=== PATIENT | female | born 1995 | race Caucasian/White ===

== ENCOUNTER → 2024-10-20 | Outpatient (CLI) | payer MEDICAID, SELFPAY ==
--- NOTE | 2024-10-20 09:30 | XR_ITS ---
Examination: Complete OB ultrasound greater than 14 weeks Date and time of exam: October 20, 2024 1113 hours INDICATIONS: Unknown size and dates. Findings: Viable intrauterine single fetus with single amniotic sac presentation cephalic Cardiac motion 153 BPM Placenta anterior grade 1 Umbilical cord insertion seen Amniotic fluid normal spine maternal right Cervix 3.5 cm. Composite estimated gestational age based on BPD, head circumference, abdominal circumference, femur length is 21 weeks 3 days Estimated weight 422 g. Survey of intracranial anatomy, spinal anatomy, abdominal anatomy, four-chamber heart performed with no abnormalities identified. IMPRESSION: Recommend this patient return for repeat sonography with the radiologist in attendance to assess cardiac echogenic foci.
== END | disposition home or self-care (01) ==
LOC: CDIM 09:30
PROVIDERS: PCP Obstetrics & Gynecology; Referring Provider Obstetrics & Gynecology; Visit Provider Obstetrics & Gynecology
DX: O20.0 Threatened abortion (principal); Z3A.21 21 weeks gestation of pregnancy
CPT/HCPCS: 76805

== ENCOUNTER 2025-02-20 02:10 | Inpatient (IN) | payer MEDICAID, SELFPAY ==
[2025-02-20] VITALS (24 sets, daily range): BP systolic 92–127; BP diastolic 52–80; PULSE 64–105; RESP 13–19; TEMP 36.4–37.2; O2SAT 95–100
[2025-02-20] MEDS: OXYTOCIN in NS 20 units 20 UNIT/1,000 ML BAG 125 UNIT IV (02:33)
[2025-02-20] MEDS: METHYLERGONOVINE INJ 0.2 MG/ML VIAL IM (02:40)
[2025-02-20] MEDS: fentaNYL CIT INJ 50 mCg/ML AMP 2ML 100 MCG IVP (02:40)
[2025-02-20] MEDS: TRANEXAMIC ACID 1,000 MG IVPB 1,000 MG/100 ML BAG 200 MG IV (02:41)
[2025-02-20] MEDS: ceFAZolin/D5W 2 GM IV 2 GM/100 ML BAG IV (02:53)
[2025-02-20] MEDS: FAMOTIDINE INJ 10 MG/ML VIAL 2 ML 20 MG IV (02:56)
--- NOTE | 2025-02-20 03:26 | PD.LDHP ---
Documentation for date of: 02/20/25 OB Labor/Induct. HPI History of Present Illness Chief complaint: Precipitous delivery : 2 Para: 1 Term pregnancies: 1 pregnancies: 0 Living children: 0 History of Abortions: Spontaneous and Elective: 0 History of Vaginal deliveries: 1 History of sections: No History of : No TEDDY: 02/24/25 History of present illness: Patient is a 29-year-old 2 para 1 at 39 weeks and 3 days with estimated due date of 02/24/2025 who was brought in by EMS due to precipitous labor at home with full dilatation of cervix. Patient proceeded to deliver shortly after arrival. Patient received care at [facility], we do not have any records on her. Verbally she reported a due date of 02/24/2025. Past Medical History Surgical History SURGICAL: Negative Section Meds Home Medications and Allergies Allergies Allergy/AdvReac Type Severity Reaction Status Date / Time No Known Allergies Allergy Verified 12/26/21 20:00 OB Exam Physical Exam Vital signs: Pulse BP 86 122/62 02/20/25 02:48 02/20/25 02:48 Constitutional Constitutional: no acute distress Routine HEENT Exam Head: Present normocephalic and atraumatic Eye: Present EOMI and PERRL ENT: Present mucous membranes moist Routine Neck Exam Neck: Present supple and trachea midline Routine Cardiovascular Exam Cardiovascular: Present RRR Routine Abdominal Exam Abdominal: Present soft and normoactive bowel sounds Detailed Labor and Delivery Exam Dilation (cm): 10 Effacement (%): 100 Cervix position: mid station: +4 Consistency: soft Routine Extremities Exam Extremities: Present full ROM Routine Skin Exam Skin: Present intact, dry and warm Routine Neurological Exam Neurological: Present alert, oriented X3 and CN II-XII intact Routine Psychiatric Exam Psychiatric: Present normal affect and normal thought process OB Assessment & Plan Assessment and Plan (1) Labor, precipitous: Status: Acute Assessment and plan: Patient is status post precipitous delivery hemorrhage with cervical laceration noted in the delivery room, patient would not tolerate exam or repair. Informed consent was obtained and she was taken to the operating room for repair under anesthesia. Please refer to separately dictated operative report for the operative portion.
--- NOTE | 2025-02-20 03:29 | ESOP_ITS ---
Operative Note - RUG REPAIRER Procedure Date of procedure: 02/20/25 Procedure Performed: Exam under anesthesia, repair of cervical laceration Placement of Bakri uterine tamponade balloon Indication: hemorrhage with inability to perform exam in the delivery room due to belligerent patient Anesthesia type: General Procedure description: Informed consent was obtained and the patient was taken to the operating room. Identity was confirmed by double identifiers and she was placed on the operating table. General anesthesia was administered and the patient was positioned in the dorsal lithotomy position on [facility]. The perineum was prepped in the usual sterile fashion. Patient already had a Philippe catheter in situ that was placed in the delivery room. A detailed exam was performed and she was noted to have laceration at 7:00 and 5:00 portions of the cervix. She was also noted to have brisk uterine hemorrhage. Right angle retractor was used to retract the vaginal wall and the laceration edges were grasped using ring forceps. They were separately repaired using [id number] stitches taking care to include the apex of the laceration. After the repair was complete hemostasis was noted to be satisfactory. At this time she continued to have brisk hemorrhage from inside the uterine cavity. A Bakri uterine tamponade balloon was placed and secured. It was inflated with 400 cc of sterile saline solution. Hemostasis was now noted to be satisfactory. All instruments were now withdrawn. The perineum was thoroughly cleaned. Patient was taken out of [facility], general anesthesia was reversed and she was taken to the recovery room in a stable and awake condition. All instruments, lap and sponge counts were correct times Specimen: none Estimated blood loss (ml): 200 Findings: Total blood loss 800 cc, 600 in the delivery room and 200 in the OR Diagnosis Problem List Completed Was Problem List Reviewed/Reconciled?: Yes
[2025-02-20 03:31] LABS: Basophils # (Auto) 0.0 Thou/mm3 (0.0-0.2); Basophils % (Auto) 0 % (0-2.5); Eosinophils # (Auto) 0.0 Thou/mm3 (0.0-0.5); Eosinophils % (Auto) 0 % (0-10); Immature Granulocytes Auto 0.04 Thou/mm3 (0.00-0.00); Lymphocytes # (Auto) 0.7 Thou/mm3 (1.0-4.8); Mean Corpuscular Volume 71 fL (80-100); Monocytes # (Auto) 0.4 Thou/mm3 (0.0-0.8); Monocytes % (Auto) 5 % (0-12); Nucleated Red Blood Cell # 0.00 Thou/mm3 (0.00-0.00); Nucleated Red Blood Cell % 0 /100 WBC (0); White Blood Count 8.0 Thou/mm3 (3.6-11.0)
--- NOTE | 2025-02-20 03:32 | PD.LDDELS ---
Data (Espinosa) Data Hx Section: No : 2 Term: 1 : 0 Livin Abortions: Spontaneous & Theraputic: 0 Delivery Data (Espinosa) Delivery Data Delivered by: Sandy Martinez Anesthesia Type Anesthesia type: General
[2025-02-20 03:33] LABS: Hematocrit 21.9 % (36.0-46.0); Lymphocytes % (Auto) 8 % (10-50); Mean Corpuscular HGB Conc 32.4 g/dl (31.0-37.0); Mean Corpuscular Hemoglobin 23.1 pg (25.0-35.0); Neutrophils # (Auto) 6.8 Thou/mm3 (1.8-7.7); Neutrophils % (Auto) 86 % (37-80); Platelet Count 178 Thou/mm3 (140-440); RDW Standard Deviation 39.9 fL (36.4-46.3); Red Blood Count 3.08 Miln/mm3 (4.00-5.20)
[2025-02-20 03:57] LABS: HIV (1&2) Antibody Rapid Non-Reactive
[2025-02-20 04:22] LABS: Rubella, IgG Antibody Reactive (Immune)
[2025-02-20 04:32] LABS: Syphilis Nonreactive (Nonreactive)
[2025-02-20 04:38] LABS: Amphetamine/Metham Scrn,Ur OB Negative (Negative); Benzoylecgonine Screen, Ur OB Negative (Negative); Opiate Screen,Urine OB Negative (Negative); THC Screen,Urine OB Positive (Negative)
[2025-02-20 04:39] LABS: THC U Confirm* See Sep Rpt
[2025-02-20 05:27] LABS: Hemoglobin 7.1 g/dL (12.0-16.0)
[2025-02-20 06:07] LABS: Basophils # (Auto) 0.0 Thou/mm3 (0.0-0.2); Basophils % (Auto) 0 % (0-2.5); Eosinophils # (Auto) 0.0 Thou/mm3 (0.0-0.5); Eosinophils % (Auto) 0 % (0-10); Hematocrit 25.8 % (36.0-46.0); Immature Granulocytes Auto 0.06 Thou/mm3 (0.00-0.00); Lymphocytes # (Auto) 0.7 Thou/mm3 (1.0-4.8); Lymphocytes % (Auto) 5 % (10-50); Mean Corpuscular HGB Conc 31.8 g/dl (31.0-37.0); Mean Corpuscular Hemoglobin 22.7 pg (25.0-35.0); Mean Corpuscular Volume 72 fL (80-100); Monocytes # (Auto) 0.6 Thou/mm3 (0.0-0.8); Monocytes % (Auto) 4 % (0-12); Neutrophils # (Auto) 13.8 Thou/mm3 (1.8-7.7); Neutrophils % (Auto) 91 % (37-80); Nucleated Red Blood Cell # 0.00 Thou/mm3 (0.00-0.00); Nucleated Red Blood Cell % 0 /100 WBC (0); Platelet Count 202 Thou/mm3 (140-440); RDW Standard Deviation 40.4 fL (36.4-46.3); Red Blood Count 3.61 Miln/mm3 (4.00-5.20); White Blood Count 15.1 Thou/mm3 (3.6-11.0)
[2025-02-20 06:13] LABS: Hemoglobin 8.2 g/dL (12.0-16.0)
--- NOTE | 2025-02-20 10:00 | PC.SS ---
DIRECTOR OF INFECTION PREVENTION conducted bedside contact with the patient to address nursing referral indicating patient was positive for THC upon admission.? DIRECTOR OF INFECTION PREVENTION discussed basis of referral.? Patient confirmed use of THC to address level of anxiety.? Per patient, last use of THC was approximately 4 months.? Patient reports edible form.? Patient?s toxicology report was also positive for THC.? Patient denies possessing a history of drug abuse.? DIRECTOR OF INFECTION PREVENTION informed the patient that a report to CWS would be generated due to patient and positive toxicology reports.? Patient acknowledged submittal of report.? Patient reports not participating with counseling to address anxiety.? Patient reports that level of anxiety is not impairing daily functioning.? Infant is the patient?s second child.? Patient is aligned with WIC, SNAP and TANF.? Patient denies possessing history of domestic violence or CWS intervention.? Tarun KENNY; will not be involved in the rearing of the infant.? OB services provided by Dr. Yuen.? Patient describes consistency with appointments.? Patient has access to appropriate supplies and equipment; to include a car seat.? Patient?s mother will provide transportation upon discharge.? Patient describes possessing support system consisting of mother and extended family.? DIRECTOR OF INFECTION PREVENTION provided the patient with community resources to include Parenting Network and Warm Line.? No further intervention required at this time, social contact worker will be available to address any further concerns.? DIRECTOR OF INFECTION PREVENTION updated bedside nurse.? Bedside nurse to submit high risk referral.? DIRECTOR OF INFECTION PREVENTION to generate CWS report.?
--- NOTE | 2025-02-20 11:39 | PC.SS ---
CWS verbal report submitted to CWS staff, Macarena Saleh. Written report submitted electronically to screening unit. Written report placed in patient's chart. SENIOR SOFTWARE DEVELOPMENT ENGINEER informed by CWS that if referral is deemed immediate, CWS staff will respond within 2 hours; if not CWS will follow up within 10 days. SENIOR SOFTWARE DEVELOPMENT ENGINEER updated bedside nurse.
[2025-02-20 13:56] LABS: Basophils # (Auto) 0.0 Thou/mm3 (0.0-0.2); Basophils % (Auto) 0 % (0-2.5); Eosinophils # (Auto) 0.0 Thou/mm3 (0.0-0.5); Eosinophils % (Auto) 0 % (0-10); Hematocrit 29.1 % (36.0-46.0); Hemoglobin 9.7 g/dL (12.0-16.0); Immature Granulocytes Auto 0.03 Thou/mm3 (0.00-0.00); Lymphocytes # (Auto) 1.3 Thou/mm3 (1.0-4.8); Lymphocytes % (Auto) 12 % (10-50); Mean Corpuscular HGB Conc 33.3 g/dl (31.0-37.0); Mean Corpuscular Hemoglobin 25.0 pg (25.0-35.0); Mean Corpuscular Volume 75 fL (80-100); Monocytes # (Auto) 0.8 Thou/mm3 (0.0-0.8); Monocytes % (Auto) 7 % (0-12); Neutrophils # (Auto) 9.2 Thou/mm3 (1.8-7.7); Neutrophils % (Auto) 81 % (37-80); Nucleated Red Blood Cell # 0.02 Thou/mm3 (0.00-0.00); Nucleated Red Blood Cell % 0 /100 WBC (0); Platelet Count 180 Thou/mm3 (140-440); RDW Standard Deviation 50.0 fL (36.4-46.3); Red Blood Count 3.88 Miln/mm3 (4.00-5.20); White Blood Count 11.4 Thou/mm3 (3.6-11.0)
[2025-02-20] MEDS: HYDROcodone/APAP 5/325 TABLET 1 TAB PO (20:06)
--- NOTE | 2025-02-20 20:23 | PD.LDPPPRG ---
Subjective Subjective Interval history: still has the bakhri and the thakur / s/p precipitate labor and delivery and extensive cervical lacerations , needing repair in OR and also a Bakhri was placed about 3 am this morning . Patient also received 2 units PRBC Hb is 9.7 now Exam Vital Signs Temp Pulse Resp BP Pulse Ox O2 Del Method O2 Flow Rate 98.6 F 75 16 97/63 98 Room Air 8 02/20/25 15:21 02/20/25 15:21 02/20/25 15:21 02/20/25 15:21 02/20/25 15:21 02/20/25 15:21 02/20/25 04:00 Narrative Exam Patient had a normal vaginal delivery. precipitous with cervical lacerations and repair and placement of bakhri balloon She is doing well, VSS alert and oriented/normal insight and judgment/denies depression or anxiety No chest pain No shortness of breath No fever Back pain manageable/denies Moving all extremities No calf pain Ambulating pain managed by Tylenol and Motrin, normal Lochia average Bakhri removed after removing 400 cc of instilled fluid Thakur still in and will be removed Other medical issues none Other concerns will start oral cytotec for uterotonicity Planning to breast-feed/bottle Feed//both Counseled on breast-feeding Counseled on care and follow-up Objective Labs 02/20/25 13:48 Labs: Laboratory Results - last 24 hr 02/20/25 02/20/25 02/20/25 03:20 05:43 13:48 WBC 8.0 15.1 H D 11.4 H RBC 3.08 L 3.61 L 3.88 L Hgb 7.1 L 8.2 L 9.7 L Hct 21.9 L* 25.8 L 29.1 L MCV 71 L 72 L 75 L MCH 23.1 L 22.7 L 25.0 MCHC 32.4 31.8 33.3 RDW Std Deviation 39.9 40.4 50.0 H Plt Count 178 202 180 Neut % (Auto) 86 H 91 H 81 H Lymph % (Auto) 8 L 5 L 12 [place] % (Auto) 5 4 7 Eos % (Auto) 0 0 0 Baso % (Auto) 0 0 0 Neut # (Auto) 6.8 13.8 H 9.2 H Lymph # (Auto) 0.7 L 0.7 L 1.3 [place] # (Auto) 0.4 0.6 0.8 Eos # (Auto) 0.0 0.0 0.0 Baso # (Auto) 0.0 0.0 0.0 Immature Gran # (Auto) 0.04 H 0.06 H 0.03 H Absolute Nucleated RBC 0.00 0.00 0.02 H Immature Gran % 1 H 0 0 Nucleated RBC % 0 0 0 Urine Opiates Screen Negative U Amphetamin/Meth Scrn Negative U Cocaine Metab Screen Negative U Marijuana (THC) Screen Positive A Syphilis Serology Nonreactive HIV 1&2 Antibody Rapid Non-Reactive Rubella IgG Antibody Reactive (Immune) Blood Type O Positive Antibody Screen NEGATIVE Crossmatch See Detail Blood Bank Wristband ID Yes Assessment & Plan Problem List (1) Labor, precipitous: Status: Acute Assessment and plan: delivered PPD #0 (2) Cervical tear resulting from childbirth: Problem details: repaired in OR approx 0200 am on 02/20/2025 Status: Acute (3) PPH ( hemorrhage): Problem details: bakhri placed , removed now and will start oral cytotec Status: Acute Time Spent With Patient Time: Total time spent is greater than 50% in coordination of care (as documented) at patient's floor/unit and/or counseling patient: Time with patient: 25 - 35 minutes
[2025-02-20 20:36] LABS: Hepatitis B Surface Antigen Non Reactive (Non React)
[2025-02-21 00:13] VITALS: BP 109/68; PULSE 60; RESP 18; TEMP 37.1; O2SAT 97
[2025-02-21 04:20] VITALS: BP 98/61; PULSE 72; RESP 16; TEMP 36.9; O2SAT 97
[2025-02-21 05:30] LABS: Basophils # (Auto) 0.0 Thou/mm3 (0.0-0.2); Basophils % (Auto) 0 % (0-2.5); Eosinophils # (Auto) 0.1 Thou/mm3 (0.0-0.5); Eosinophils % (Auto) 1 % (0-10); Hematocrit 28.4 % (36.0-46.0); Hemoglobin 9.4 g/dL (12.0-16.0); Immature Granulocytes Auto 0.04 Thou/mm3 (0.00-0.00); Lymphocytes # (Auto) 2.1 Thou/mm3 (1.0-4.8); Lymphocytes % (Auto) 18 % (10-50); Mean Corpuscular HGB Conc 33.1 g/dl (31.0-37.0); Mean Corpuscular Hemoglobin 24.8 pg (25.0-35.0); Mean Corpuscular Volume 75 fL (80-100); Monocytes # (Auto) 0.8 Thou/mm3 (0.0-0.8); Monocytes % (Auto) 7 % (0-12); Neutrophils # (Auto) 8.3 Thou/mm3 (1.8-7.7); Neutrophils % (Auto) 73 % (37-80); Nucleated Red Blood Cell # 0.02 Thou/mm3 (0.00-0.00); Nucleated Red Blood Cell % 0 /100 WBC (0); Platelet Count 212 Thou/mm3 (140-440); RDW Standard Deviation 49.5 fL (36.4-46.3); Red Blood Count 3.79 Miln/mm3 (4.00-5.20); White Blood Count 11.4 Thou/mm3 (3.6-11.0)
[2025-02-21] MEDS: IBUPROFEN TAB 400 MG TABLET 800 MG PO (06:13)
[2025-02-21 08:03] VITALS: BP 106/58; PULSE 68; RESP 16; TEMP 37; O2SAT 96
--- NOTE | 2025-02-21 10:50 | PD.LDPPPRG ---
Subjective Subjective Interval history: The patient is a 29-year-old -0-0-2 status post vaginal delivery around 201902/19/[address] Little. Patient showed up almost complete and pushy. She delivered. She continued to have bleeding after and had a cervical laceration repair and bakri replaced in the operating room by Dr. Jacques. Today, the patient is resting comfortably in bed. She is a little tearful. She would like to go home. She was getting care with Dr. Nair in [facility]. She is breast-feeding. Her predelivery hemoglobin was only 7.1 She received 2 units of packed red blood cells, her posttransfusion hemoglobin yesterday was 9.7 and this morning it is 9.4. Patient is okay if I order IV iron before discharge Exam Vital Signs Temp Pulse Resp BP Pulse Ox O2 Del Method O2 Flow Rate 98.6 F 68 16 106/58 L 96 Room Air 8 02/21/25 08:03 02/21/25 08:03 02/21/25 08:03 02/21/25 08:03 02/21/25 08:03 02/21/25 08:03 02/20/25 04:00 Narrative Exam Fundus is firm, nontender, extremities show no significant edema or erythema Patient's alert oriented x 3 she is cooperative she is a little tearful today. She denies severe depression. Objective Labs 02/21/25 04:57 Labs: Laboratory Results - last 24 hr 02/20/25 02/20/25 02/20/25 03:20 13:48 17:39 WBC 11.4 H RBC 3.88 L Hgb 9.7 L Hct 29.1 L MCV 75 L MCH 25.0 MCHC 33.3 RDW Std Deviation 50.0 H Plt Count 180 Neut % (Auto) 81 H Lymph % (Auto) 12 [place] % (Auto) 7 Eos % (Auto) 0 Baso % (Auto) 0 Neut # (Auto) 9.2 H Lymph # (Auto) 1.3 [place] # (Auto) 0.8 Eos # (Auto) 0.0 Baso # (Auto) 0.0 Immature Gran # (Auto) 0.03 H Absolute Nucleated RBC 0.02 H Immature Gran % 0 Nucleated RBC % 0 Hep Bs Antigen Non Reactive Crossmatch See Detail 02/21/25 04:57 WBC 11.4 H RBC 3.79 L Hgb 9.4 L Hct 28.4 L MCV 75 L MCH 24.8 L MCHC 33.1 RDW Std Deviation 49.5 H Plt Count 212 D Neut % (Auto) 73 Lymph % (Auto) 18 [place] % (Auto) 7 Eos % (Auto) 1 Baso % (Auto) 0 Neut # (Auto) 8.3 H Lymph # (Auto) 2.1 [place] # (Auto) 0.8 Eos # (Auto) 0.1 Baso # (Auto) 0.0 Immature Gran # (Auto) 0.04 H Absolute Nucleated RBC 0.02 H Immature Gran % 0 Nucleated RBC % 0 Hep Bs Antigen Crossmatch Assessment & Plan Problem List (1) Cervical tear resulting from childbirth: Problem details: repaired in OR approx 0200 am on 02/20/2025 Status: Acute (2) PPH ( hemorrhage): Problem details: bakri placed , removed 02/20/25. Hemoglobin stable Status: Acute (3) care following vaginal delivery: Status: Acute Assessment and plan: Discharge home today in stable condition. Discharge instructions given including pelvic rest x 6 weeks. Time Spent With Patient Time: Total time spent is greater than 50% in coordination of care (as documented) at patient's floor/unit and/or counseling patient: Time with patient: less than 15 minutes
--- NOTE | 2025-02-21 11:04 | PC.SS ---
SPEED BELT SANDER TENDER confirmed with bedside nurse that bedside contact completed with patient on 02-20-25. No barrier to patient's discharge.
--- NOTE | 2025-02-21 11:13 | PD.LDDS ---
DS: Providers Provider Date of admission: 02/20/25 02:47 Primary care physician: Physician No Primary/Family Admitting Provider: Lg Little MD Attending Provider on Admission: Lg Little MD Consults: 02/20/25 05:07 Referral Routine Comment: Attending Provider on DC: Lori Ventura MD ([facility]) Discharging Provider: Lori Ventura MD ([facility]) Anticipated date of discharge: 02/21/25 DS: Diagnosis Discharge Diagnosis (1) care following vaginal delivery: Status: Acute Assessment & Plan: Pelvic rest x 6 weeks (2) PPH ( hemorrhage): Status: Acute Assessment & Plan: Patient came in anemic with a hemoglobin of 7. She received 2 units of packed red blood cells. (3) Cervical tear resulting from childbirth: Status: Acute Assessment & Plan: Patient's status post repair in the OR. Problem List Completed Was Problem List Reviewed/Reconciled?: Yes Summary/Hosp Course Brief History: Patient is a 29-year-old 2 para 1 at 39 weeks and 3 days with estimated due date of 02/24/2025 who was brought in by EMS due to precipitous labor at home with full dilatation of cervix. Patient proceeded to deliver shortly after arrival. Patient received care at [facility], we do not have any records on her. Verbally she reported a due date of 02/24/2025. The patient was admitted by Dr. Little on 02/19/2025. Please see history and physical for further detail. She underwent a vaginal delivery by Dr. Little shortly after admission. Please see delivery notes for further details. The patient had a lot of bleeding at delivery and was difficult to evaluate secondary to pain. Dr. Little took her to the operating room for repair of a cervical laceration and placement of a Bakri balloon. This was around 2 or 3 in the morning on 02/20/2025. Please see op report for further details. Of note, the patient came in very anemic with a hemoglobin of 7.1. She received 2 units of packed red blood cells after delivery. On day #1 when she was rounded on by Dr. Ramos, her hemoglobin was 9.7. This morning her hemoglobin on day #2 is 9.4. She will be discharged home day #2. She has a 2-year-old at home. I did encourage her to continue to take her vitamins and oral iron. I gave her 1 dose of IV iron. Her care is Dr. Nair and she will follow-up with Dr. Nair. Peripartum Data Delivery Method: Normal Vaginal Delivery Episiotomy Description: None Laceration Description: see Delivery Summary Procedures: Procedures Operation Date: 02/20/25 03:00 Actual Procedure Side Surgeon p Vaginal Lacertaion & Cervical repair OB Lg Little MD complications: transfusion, uterine atony and other (Cervical laceration repaired in the operating room) Status at Discharge Cognitive/behavioral status at discharge: Patient is alert and orient x 3 in no apparent distress Functional status at discharge: independent ambulation Overall status at discharge: patient is progressing back to baseline Time Spent with Patient Time attestation: Total time spent providing and/or coordinating discharge services: Time spent: Less than 30 minutes Specific discharge activities: Pelvic rest x 6 weeks. No intercourse, tampons, or douching x 6 weeks. Follow-up with Dr. Nair in 2 weeks. Exam Vital Signs Temp Pulse Resp BP Pulse Ox O2 Del Method O2 Flow Rate 98.6 F 68 16 106/58 L 96 Room Air 8 02/21/25 08:03 02/21/25 08:03 02/21/25 08:03 02/21/25 08:03 02/21/25 08:03 02/21/25 08:03 02/20/25 04:00 Narrative Exam Patient is alert and orient x 3 in no apparent distress. Fundus is firm nontender at umbilicus, extremities show no significant edema or erythema. Discharge Plan Plan Patient Disposition: HOME (Self Care) Disposition Comment: stable Patient condition on transfer: Stable Prescriptions/Referrals Prescriptions/Med Rec: New hydrocodone-acetaminophen 5-325 mg Tablet 1 tab PO Q4HR MDD 4 PRN (Reason: Patient rated pain 7 to 8) Qty: 20 0RF ibuprofen 400 mg Tablet 800 mg PO Q8HR PRN (Reason: Pain Scale 4-6 (Moderate) Qty: 60 0RF docusate sodium 100 mg Capsule 100 mg PO QDAY Qty: 30 0RF Discontinued ondansetron HCl 4 mg tablet 4 mg PO TID Qty: 15 0RF Referrals: No Primary/Family,Physician [Primary Care Provider] Patient/Caregiver Discharge Instructions Discharge Activity: activity as tolerated Other Discharge Activity Instructions:: Pelvic rest x 6 weeks Other Discharge Diet Instructions: High iron diet Education Materials: After a Vaginal , After Delivery [place] Concerns, Breast Care After , : Caring for Yourself, Feel Healthy After, Hemorrhage Print Language: Frisian Activity Restrictions/Additional Instructions: No intercourse, tampons, douching or intercourse or bathtubs x 6 weeks. Follow-up with Dr. Nair in 2 weeks. Stand Alone Forms: Anika Award Info., Patient Portal Info Letter Discharge Order Discharge Orders: Discharge (Routine); Ordered 02/21/25 Ordered By: Lori Ventura ([facility]) Planned Discharge Date 02/21/25 (2) PPH ( hemorrhage) Qualifiers: hemorrhage type: other immediate Qualified Code(s): O72.1 - Other immediate hemorrhage
[2025-02-21] MEDS: FERRIC SOD GLUC INJ 125 MG in SODIUM CHLORIDE 0.9% 100 ML 110 MG IV (11:49)
[2025-02-21] MEDS: ACETAMINOPHEN 325 MG TABLET 650 MG PO (12:06)
[2025-02-21 12:10] VITALS: BP 115/64; PULSE 71; RESP 18; TEMP 37.1; O2SAT 98
== END 2025-02-21 15:05 | disposition home or self-care (01) | DRG 542 ==
LOC: S4SX 02:58 → S4NX 04:05
PROVIDERS: Obstetrics & Gynecology; Admitting Provider Obstetrics & Gynecology; Visit Provider Obstetrics & Gynecology
PROC: 10E0XZZ Delivery of Products of Conception, External Approach (ICD-10-PCS; principal; 2025-02-20 02:45)
DX: O62.3 Precipitate labor (principal); Z3A.39 39 weeks gestation of pregnancy; Z37.0 Single live birth; O71.3 Obstetric laceration of cervix; O72.1 Other immediate postpartum hemorrhage; O99.02 Anemia complicating childbirth
CPT/HCPCS: 36415; 80307; 85025; 86703; 86762; 86780; 86850; 86900; 86901; 86923; 87340; A4217; A4314; A4649; J0689; J2210; J2590; J2704; J2916; J3010; J3490; J7050; P9016; S0191; A9270